=== PATIENT | female | born 1995 | race Caucasian/White ===

== ENCOUNTER 2018-01-26 14:05 | Emergency (ER) | payer OTHER ==
[~2018-01-26] VITALS: Ht 139.7 cm; Wt 45.4 kg
== END 2018-01-26 19:21 | disposition home or self-care (01) ==
LOC: ER 14:05
DX: S01.81XA Laceration without foreign body of other part of head, initial encounter (principal); W18.39XA Other fall on same level, initial encounter; Y93.89 Activity, other specified; Y92.59 Other trade areas as the place of occurrence of the external cause; Y99.8 Other external cause status